=== PATIENT | female | born 1990 | race African-American/Black ===

== ENCOUNTER 2020-06-04 15:59 | Inpatient (IN) | payer MEDICAID ==
[~2020-06-04] VITALS: Ht 170.2 cm; Wt 73.5 kg
[2020-06-04] MEDS ORDERED: SODIUM CHLORIDE 0.9% 1,000 ML IV ONE (16:39)
[2020-06-04] MEDS ORDERED: ACETAMINOPHEN 325MG TABLET PO STA (16:39)
[2020-06-04 16:58] LABS: HEMATOCRIT. 39.3 % (36.0-48.0); HEMOGLOBIN. 13.2 g/dL (12.0-16.0); MEAN CORPUSCULAR HEMOGLOBIN 30.4 pg (28.0-32.0); MEAN CORPUSCULAR VOLUME 90.5 fL (81.0-99.0); MEAN PLATELET VOLUME 8.9 fl (7.4-10.4); PLATELET 227 x1000/uL (130-400); RED BLOOD CELL COUNT 4.35 mill/uL (4.2-5.4); RED CELL DISTRIBUTION WIDTH 13.4 % (11.6-14.6)
[2020-06-04 17:00] LABS: CHLORIDE 101 mEq/L (98-107)
[2020-06-04 17:08] LABS: D-DIMER 0.71 mg/L FEU (<0.50); INR 1.1; PROTHROMBIN TIME 11.3 sec (9.6-11.0)
[2020-06-04 17:09] LABS: CREATINE KINASE 126 IU/L (26-192)
[2020-06-04 17:58] LABS: PLATELET ESTIMATE NORMAL
[2020-06-04] MEDS ORDERED: AZITHROMYCIN 500 MG in DEXT 5% WATER 250 ML IV STA (18:28)
[2020-06-04] MEDS ORDERED: CEFTRIAXONE 1 G PREMIX 50 ML IV ONE (18:30)
[2020-06-04] MEDS: SODIUM CHLORIDE 0.9% 1,000 ML IV SCH (20:12)
[2020-06-04] MEDS ORDERED: ONDANSETRON HCL 4MG/2ML INJ IV PRN (20:15)
[2020-06-04] MEDS ORDERED: POTASSIUM CHLORIDE 20MEQ TABLET SR PO NR (20:15)
[2020-06-04] MEDS ORDERED: GUAIFENESIN 200MG/10ML SUGAR FREE UDC PO PRN (20:15)
[2020-06-04] MEDS ORDERED: TRAZODONE HCL 50MG TABLET PO PRN (21:00)
[2020-06-04 22:26] LABS: HCG SCREEN NEGATIVE
[2020-06-04] MEDS: HEPARIN 5000 UNITS/ML VIAL SUBCUT SCH (22:39)
[2020-06-04 22:53] LABS: CLARITY URINE CLOUDY (CLEAR); COLOR URINE YELLOW (YELLOW); KETONES URINE NEGATIVE (NEGATIVE); LEUKOCYTE ESTERASE URINE 3+ (NEGATIVE); NITRITE URINE POSITIVE (NEGATIVE); OCCULT BLOOD URINE 2+ (NEGATIVE); PROTEIN URINE TRACE (NEGATIVE); SPECIFIC GRAVITY URINE 1.009 (1.005-1.030)
[2020-06-04 23:59] VITALS: BP 125/67
[2020-06-05] MEDS: ACETAMINOPHEN 325MG TABLET PO PRN ×3 (00:46→12:34)
[2020-06-05 04:00] VITALS: BP 101/60
[2020-06-05 08:00] VITALS: BP 89/56
[2020-06-05 08:08] LABS: *AMPHETAMINES SCREEN URINE NEGATIVE (NEGATIVE); *BARBITURATES SCREEN URINE NEGATIVE (NEGATIVE); *BENZODIAZEPINES SCREEN URINE NEGATIVE (NEGATIVE); *COCAINE SCREEN URINE NEGATIVE (NEGATIVE); METHADONE URINE SCREEN NEGATIVE (NEGATIVE); OPIATES URINE SCREEN NEGATIVE (NEGATIVE)
[2020-06-05 08:09] LABS: CANNABINOID URINE SCREEN NEGATIVE (NEGATIVE); PHENCYCLIDINE URINE SCREEN NEGATIVE (NEGATIVE)
[2020-06-05] MEDS: HEPARIN 5000 UNITS/ML VIAL SUBCUT SCH ×2 (08:33→20:37)
[2020-06-05] MEDS: AZITHROMYCIN 500 MG in DEXT 5% WATER 250 ML IV SCH (08:33)
[2020-06-05] MEDS: SODIUM CHLORIDE 0.9% 1,000 ML IV SCH ×2 (08:33→20:39)
[2020-06-05] MEDS ORDERED: CEFTRIAXONE 1 G PREMIX 50 ML IV SCH (09:00)
[2020-06-05] MEDS ORDERED: AZITHROMYCIN 500 MG in DEXT 5% WATER 250 ML IV SCH (09:00)
[2020-06-05 09:48] VITALS: BP 102/62
[2020-06-05] MEDS ORDERED: CEFTRIAXONE 1,000 MG in DEXTROSE 5% WATER 50 ML IV SCH (10:00)
[2020-06-05] MEDS: CEFTRIAXONE 1,000 MG in DEXTROSE 5% WATER 50 ML IV SCH (10:03)
[2020-06-05 12:00] VITALS: BP 114/73
[2020-06-05 13:24] LABS: HEMATOCRIT. 35.9 % (36.0-48.0); HEMOGLOBIN. 12.2 g/dL (12.0-16.0); MEAN CORPUSCULAR HEMOGLOBIN 30.8 pg (28.0-32.0); MEAN CORPUSCULAR VOLUME 90.2 fL (81.0-99.0); MEAN PLATELET VOLUME 8.6 fl (7.4-10.4); PLATELET 205 x1000/uL (130-400); RED BLOOD CELL COUNT 3.98 mill/uL (4.2-5.4); RED CELL DISTRIBUTION WIDTH 13.3 % (11.6-14.6)
[2020-06-05 13:42] LABS: CHLORIDE 103 mEq/L (98-107)
[2020-06-05 13:45] LABS: PLATELET ESTIMATE NORMAL
[2020-06-05 16:00] VITALS: BP 102/56
[2020-06-05] MEDS ORDERED: ALBUTEROL 6.7GM HFA INHALER ORI PRN (16:15)
[2020-06-05] MEDS: IBUPROFEN 600MG TABLET PO PRN (17:18)
[2020-06-05 20:00] VITALS: BP 94/56
[2020-06-06] VITALS: BP 103/64
[2020-06-06] MEDS: ACETAMINOPHEN 325MG TABLET PO PRN ×3 (00:37→16:10)
[2020-06-06 04:00] VITALS: BP 92/54
[2020-06-06 05:48] LABS: CHLORIDE 107 mEq/L (98-107)
[2020-06-06 06:26] LABS: HEMATOCRIT. 36.9 % (36.0-48.0); HEMOGLOBIN. 12.5 g/dL (12.0-16.0); MEAN CORPUSCULAR HEMOGLOBIN 30.7 pg (28.0-32.0); MEAN CORPUSCULAR VOLUME 90.8 fL (81.0-99.0); MEAN PLATELET VOLUME 9.4 fl (7.4-10.4); PLATELET 206 x1000/uL (130-400); RED BLOOD CELL COUNT 4.06 mill/uL (4.2-5.4); RED CELL DISTRIBUTION WIDTH 13.5 % (11.6-14.6)
[2020-06-06 07:51] VITALS: BP 110/66
[2020-06-06] MEDS: AZITHROMYCIN 500 MG in DEXT 5% WATER 250 ML IV SCH (08:59)
[2020-06-06] MEDS: SODIUM CHLORIDE 0.9% 1,000 ML IV SCH ×2 (08:59→21:00)
[2020-06-06] MEDS: HEPARIN 5000 UNITS/ML VIAL SUBCUT SCH ×2 (08:59→21:00)
[2020-06-06 10:13] LABS: PLATELET ESTIMATE NORMAL
[2020-06-06] MEDS: CEFTRIAXONE 1,000 MG in DEXTROSE 5% WATER 50 ML IV SCH (11:11)
[2020-06-06 12:00] VITALS: BP 101/68
[2020-06-06 16:00] VITALS: BP 101/65
[2020-06-06] MEDS: IBUPROFEN 600MG TABLET PO PRN (18:00)
[2020-06-06 20:00] VITALS: BP 95/59
[2020-06-07 00:05] VITALS: BP 102/63
[2020-06-07 04:00] VITALS: BP 95/66
[2020-06-07 05:55] LABS: BASOPHILS % 0.4 % (0.0-2.0); EOSINOPHILS % 1.1 % (0.0-5.0); HEMATOCRIT. 33.2 % (36.0-48.0); HEMOGLOBIN. 11.3 g/dL (12.0-16.0); LYMPHOCYTES % 27.8 % (20.0-50.0); MEAN CORPUSCULAR HEMOGLOBIN 30.7 pg (28.0-32.0); MEAN PLATELET VOLUME 9.8 fl (7.4-10.4); NEUTROPHILS % 56.7 % (40.0-76.0); PLATELET 193 x1000/uL (130-400); RED BLOOD CELL COUNT 3.68 mill/uL (4.2-5.4); RED CELL DISTRIBUTION WIDTH 13.3 % (11.6-14.6)
[2020-06-07 06:05] LABS: CHLORIDE 108 mEq/L (98-107)
[2020-06-07 07:46] VITALS: BP 100/67
[2020-06-07] MEDS: HEPARIN 5000 UNITS/ML VIAL SUBCUT SCH (08:04)
[2020-06-07] MEDS: IBUPROFEN 600MG TABLET PO PRN (08:05)
[2020-06-07] MEDS: AZITHROMYCIN 500 MG in DEXT 5% WATER 250 ML IV SCH (08:05)
[2020-06-07] MEDS: CEFTRIAXONE 1,000 MG in DEXTROSE 5% WATER 50 ML IV SCH (09:42)
[2020-06-07] MEDS: SODIUM CHLORIDE 0.9% 1,000 ML IV SCH (09:44)
[2020-06-07] MEDS ORDERED: LEVO750T21 MT (11:25)
[2020-06-07] MEDS ORDERED: DEXTL PO (11:25)
[2020-06-07] MEDS ORDERED: TOPUD PO (11:25)
[2020-06-07 11:50] VITALS: BP_SYST 111; BP_SYST 117; BP_DIAS 73; BP_DIAS 75
[2020-06-07 13:01] VITALS: BP 111/73
== END 2020-06-07 13:45 | disposition home or self-care (01) | DRG 720 ==
LOC: ER 15:59 → 7WST 19:05 → EDBEDREQTM 19:07 → EDBEDREQ 19:07 → ENRESERV 19:42
PROVIDERS: ADMIT Internal Medicine; ATTEND Internal Medicine
DX: A41.51 Sepsis due to Escherichia coli [E. coli] (principal); E87.1 Hypo-osmolality and hyponatremia; E87.6 Hypokalemia; J06.9 Acute upper respiratory infection, unspecified; J96.00 Acute respiratory failure, unspecified whether with hypoxia or hypercapnia; N39.0 Urinary tract infection, site not specified; E66.9 Obesity, unspecified; R73.9 Hyperglycemia, unspecified; D68.59 Other primary thrombophilia; E83.42 Hypomagnesemia; Z20.828 Contact with and (suspected) exposure to other viral communicable diseases; Z82.3 Family history of stroke; Z82.49 Family history of ischemic heart disease and other diseases of the circulatory system; Z68.25 Body mass index [BMI] 25.0-25.9, adult
CPT/HCPCS: 36415; 71045; 76770; 80053; 80305; 80320; 81003; 82550; 82728; 83605; 83615; 83735; 83880; 84145; 84484; 84703; 85025; 85379; 85384; 86140; 87077; 87186; 87426; 87635; 93005; 99285; J0456; J0696; J1644; J7030; J7060; G0480